=== PATIENT | male | born 1980 | race Caucasian/White ===

== ENCOUNTER 2020-11-27 14:13 | Emergency (ER) | payer MEDICAID ==
[~2020-11-27] VITALS: Ht 172.7 cm; Wt 72.6 kg
[2020-11-27 14:27] VITALS: BP_SYST 123
[2020-11-27] MEDS ORDERED: LIDOCAINE 1%, 20 ML MDV 20 ML ONE (16:23)
[2020-11-27 16:35] LABS: BASOPHILS % (AUTO) 0.7 % (0.0-2.0); EOSINOPHILS # (AUTO) 0.1 K/uL (0.0-0.4); HEMATOCRIT 41.9 % (36-54); HEMOGLOBIN 14.4 g/dL (14.0-18.0); LYMPHOCYTES # (AUTO) 2.8 K/uL (1.0-5.5); LYMPHOCYTES % (AUTO) 42.4 % (20.5-51.5); MEAN CORPUSCULAR HEMOGLOBIN 33 pg (27-31); MEAN CORPUSCULAR HGB CONC 34 % (32-36); MEAN CORPUSCULAR VOLUME 97 fL (79.0-98.0); MONOCYTES # (AUTO) 0.4 K/uL (0.0-1.0); MONOCYTES % (AUTO) 6.7 % (1.7-9.3); NEUTROPHILS # (AUTO) 3.2 K/uL (1.8-7.7); NEUTROPHILS % (AUTO) 49.2 % (40.0-70.0); PLATELET COUNT (AUTO) 293 K/uL (130-430); RED BLOOD CELL COUNT(AUTO) 4.31 MIL/uL (4.2-6.2); RED CELL DISTRIBUTION WIDTH 14.1 % (9.0-15.0); WHITE BLOOD COUNT (AUTO) 6.5 K/uL (4.8-10.8)
[2020-11-27] MEDS ORDERED: PENICILLIN POTASSIUM IV SCH (17:00)
[2020-11-27] MEDS ORDERED: NS IV SCH (17:00)
[2020-11-27 17:08] LABS: CALCIUM 8.7 mg/dL (8.4-11.0); CREATININE 0.87 mg/dL (0.55-1.30); POTASSIUM 4.1 mmol/L (3.5-5.1)
[2020-11-27 17:13] LABS: ALBUMIN 2.9 g/dL (3.4-4.8); TOTAL BILIRUBIN 0.2 mg/dL (0.0-1.0)
[2020-11-27 17:18] LABS: BILIRUBIN,URINE NEGATIVE (NEGATIVE); BLOOD, URINE NEGATIVE (NEGATIVE); CLARITY/URINE CLEAR (CLEAR); COLOR,URINE YELLOW (YELLOW); GLUCOSE,URINE NEGATIVE (NEGATIVE); KETONES,URINE NEGATIVE (NEGATIVE); LEUKOCYTE ESTERASE ,URINE NEGATIVE (NEGATIVE); NITRITE, URINE NEGATIVE (NEGATIVE); PH,URINE 7.5 (5.0-8.0); PROTEIN URINE NEGATIVE (NEGATIVE); UROBILINOGEN,URINE 0.2 (0.2-1.0)
[2020-11-27 17:29] LABS: CSF WHITE BLOOD CELL COUNT 10 /uL (0-5)
[2020-11-27 17:50] LABS: CSF GLUCOSE 73 mg/dL (40-70)
[2020-11-27] MEDS ORDERED: PENICILLIN G BENZATHINE 1.2 MMU/2 ML SYR IM ONE (18:00)
[2020-11-27 19:23] LABS: CSF PROTEIN 43 mg/dL (15-45)
[2020-11-27 20:05] VITALS: BP_SYST 129
[2020-11-28] MEDS ORDERED: NS IV SCH (12:00)
[2020-11-28] MEDS ORDERED: PENICILLIN POTASSIUM IV SCH (12:00)
== END 2020-11-27 20:05 | disposition admitted as inpatient to this hospital (09) ==
LOC: SED 14:13
DX: A52.19 Other symptomatic neurosyphilis (principal); Z20.822 Contact with and (suspected) exposure to COVID-19
CPT/HCPCS: 36415; 62270; 70450; 76376; 80053; 81003; 82947; 83605; 84157; 85025; 85048; 86592; 87040; 87070; 87205; 87426; 87899; 96372; 99285; J0561; J2001; J2540